=== PATIENT | female | born 1970 | race African-American/Black ===

== ENCOUNTER 2017-08-08 14:41 | Emergency (ER) | payer OTHER ==
[~2017-08-08] VITALS: Ht 165.1 cm; Wt 83.9 kg
[2017-08-08] MEDS ORDERED: LEVEMIR SUBQ (14:48)
[2017-08-08] MEDS ORDERED: NOVOLOG100 UNIT/1 SUBQ (14:49)
[2017-08-08] MEDS ORDERED: NORVASC 5 MG TAB5 MG PO (14:49)
[2017-08-08] MEDS ORDERED: CIPRODEX OTIC7.5 ML OTIC (17:46)
[2017-08-08] MEDS ORDERED: HYDROCODONE-AP1 EAC6 PO (17:46)
[2017-08-08 18:52] VITALS: BP 138/99
== END 2017-08-08 18:10 | disposition home or self-care (01) ==
LOC: ER 14:41
DX: H60.91 Unspecified otitis externa, right ear (principal); F17.210 Nicotine dependence, cigarettes, uncomplicated; E10.9 Type 1 diabetes mellitus without complications; I10 Essential (primary) hypertension

== ENCOUNTER 2018-07-23 01:25 | Emergency (ER) | payer OTHER ==
[~2018-07-23] VITALS: Ht 162.6 cm; Wt 86.2 kg
[~2018-07-23 01:25] MED LIST: CIPRODEX OTIC7.5 ML OTIC; HYDROCODONE-AP1 EAC6 PO; LEVEMIR SUBQ; NORVASC 5 MG TAB5 MG PO; NOVOLOG100 UNIT/1 SUBQ
[2018-07-23] MEDS ORDERED: METFORMIN HCL500 MG PO (01:43)
[2018-07-23 02:23] LABS: URINE BILIRUBIN NEGATIVE (Negative); URINE BLOOD NEGATIVE (Negative); URINE CLARITY SL CLOUDY; URINE COLOR YELLOW; URINE GLUCOSE-RANDOM* NEGATIVE (Negative); URINE KETONES NEGATIVE (Negative); URINE LEUKOCYTES-REFLEX NEGATIVE (Negative); URINE NITRITE-REFLEX NEGATIVE (Negative); URINE PROTEIN (DIPSTICK) NEGATIVE (Negative); URINE UROBILINOGEN 0.2 E.U./dl (0.2-1.0)
[2018-07-23 02:40] LABS: ABSOLUTE NEUTROPHILS 7.2 thou/uL (1.4-8.2); BASOPHILS 1.4 % (0.0-2.0); EOSINOPHILS 2.2 % (0.0-3.0); HEMATOCRIT 46.6 % (37.0-47.0); HEMOGLOBIN 15.9 gm/dL (12.0-15.0); LYMPHOCYTES 34.7 % (24.0-44.0); MCH 31.7 pg (26.0-34.0); MCHC 34.2 g/dL (28.0-37.0); MCV 92.6 fL (80.0-100.0); MONOCYTES 5.8 % (1.0-8.0); PLATELET COUNT 246 thou/uL (150-400); POLYS 55.9 % (36.0-66.0); RBC 5.03 mil/uL (4.20-5.00); RDW 13.6 % (10.5-14.5); WBC 12.9 thou/uL (4.0-11.0)
[2018-07-23 02:44] LABS: CALCIUM 10.1 mg/dL (8.5-10.1); POTASSIUM 3.7 mmol/L (3.5-5.1)
[2018-07-23 04:13] VITALS: BP 137/87
== END 2018-07-23 04:28 | disposition home or self-care (01) ==
LOC: ER 01:25
PROVIDERS: Emergency Medicine
DX: M54.5 Low back pain (principal); R10.30 Lower abdominal pain, unspecified; E10.9 Type 1 diabetes mellitus without complications; I10 Essential (primary) hypertension; F17.210 Nicotine dependence, cigarettes, uncomplicated; Z86.718 Personal history of other venous thrombosis and embolism; Z88.8 Allergy status to other drugs, medicaments and biological substances